=== PATIENT | male | born 1995 | race Caucasian/White ===

== ENCOUNTER 2020-08-31 15:10 | Emergency (ER) | payer MEDICAID ==
[2020-08-31] MEDS ORDERED: Lidocaine 5% 700 MG Patch TOP ONE (15:34)
[2020-08-31] MEDS ORDERED: Ketorolac 60 MG/2 ML SDV IM ONE (15:34)
[2020-08-31] MEDS ORDERED: Cyclobenzaprine 10 MG Tab PO ONE (15:34)
--- NOTE | 2020-08-31 15:40 | EDM.PDOC ---
ED HPI GENERAL MEDICAL PROBLEM - General Chief Complaint: Back Pain or Injury Stated Complaint: back pain Time Seen by Provider: 08/31/20 15:16 Source of Information: Reports: Patient History Limitations: Reports: No Limitations - History of Present Illness INITIAL COMMENTS - FREE TEXT/NARRATIVE: Patient is a 25-year-old male who presents today for low back pain. He states that he was laying in the bed with a memory foam for about hourly woke up he had this intense pain in his lower back. Patient has history of recurrent back problems and has had 2 spinal surgeries. He denies any injuries or direct trauma to the back any urinary incontinence or lower extremity weakness or numbness in the tailbone area. Patient has no other complaints and states that palpation or movement placements the pain worse that makes the pain better and she is to Tylenol without relief. Left Lower Back Pain Score (Numeric/FACES): 10 - Related Data Allergies Allergy/AdvReac Type Severity Reaction Status Date / Time No Known Allergies Allergy Verified 08/31/20 15:19 Home Meds: Home Meds Desvenlafaxine Succinate [Pristiq] 25 mg PO DAILY 08/31/20 [History] Past Medical History - Past Health History Medical/Surgical History: Denies Medical/Surgical History Musculoskeletal History: Reports: Back Pain, Chronic Psychiatric History: Reports: Anxiety, Depression - Infectious Disease History Infectious Disease History: Reports: Chicken Pox - Past Surgical History Other Musculoskeletal Surgeries/Procedures:: back surgery Social & Family History - Tobacco Use Tobacco Use Status *Q: Current Every Day Tobacco User Years of Tobacco use: 12 Packs/Tins Daily: 1 - Caffeine Use Caffeine Use: Reports: Energy Drinks - Recreational Drug Use Recreational Drug Use: No ED ROS GENERAL - Review of Systems Review Of Systems: See Below Constitutional: Reports: No Symptoms HEENT: Reports: No Symptoms Respiratory: Reports: No Symptoms Cardiovascular: Reports: No Symptoms Endocrine: Reports: No Symptoms GI/Abdominal: Reports: No Symptoms : Reports: No Symptoms Musculoskeletal: Reports: Back Pain Skin: Reports: No Symptoms Neurological: Reports: No Symptoms Psychiatric: Reports: No Symptoms Hematologic/Lymphatic: Reports: No Symptoms Immunologic: Reports: No Symptoms ED EXAM,LOWER BACK PAIN/INJURY - Physical Exam Exam: See Below Exam Limited By: No Limitations General Appearance: Alert, WD/WN, No Apparent Distress Respiratory/Chest: No Respiratory Distress, Lungs Clear Cardiovascular: Normal Peripheral Pulses, Regular Rate, Rhythm GI/Abdominal: Normal Bowel Sounds, Soft, Non-Tender Back Exam: Normal Inspection, Paraspinal Tenderness, Vertebral Tenderness Extremities: Normal Inspection Neurological: Alert, Normal Mood/Affect Course - Vital Signs Last Recorded V/S: Last Vital Signs Temp 97 F 08/31/20 15:20 Pulse 93 08/31/20 16:36 Resp 16 08/31/20 16:36 BP 136/94 H 08/31/20 16:36 Pulse Ox 98 08/31/20 16:36 - Orders/Labs/Meds Meds: Medications Discontinued Medications Generic Name Dose Route Start Last Admin Trade Name Freq PRN Reason Stop Dose Admin Cyclobenzaprine HCl 10 mg 08/31/20 15:34 08/31/20 15:51 Cyclobenzaprine 10 Mg Tab PO 08/31/20 15:35 10 mg ONETIME ONE Administration Ketorolac Tromethamine 60 mg 08/31/20 15:34 08/31/20 15:52 Ketorolac 60 Mg/2 Ml Sdv IM 08/31/20 15:35 60 mg ONETIME ONE Administration Lidocaine 700 mg 08/31/20 15:34 08/31/20 15:56 Lidocaine 5% 700 Mg Patch TOP 08/31/20 15:35 700 mg ONETIME ONE Administration Oxycodone/Acetaminophen 1 tab 08/31/20 16:28 08/31/20 16:34 Acetaminophen/Oxycodone 325-5 Mg Tab PO 08/31/20 16:29 1 tab ONETIME ONE Administration Departure - Departure Time of Disposition: 17:04 Disposition: Home, Self-Care 01 Condition: Good Clinical Impression: Lumbago - Discharge Information *PRESCRIPTION DRUG MONITORING PROGRAM REVIEWED*: Not Applicable *COPY OF PRESCRIPTION DRUG MONITORING REPORT IN PATIENT ANDREA: Not Applicable Instructions: Acute Back Pain, Adult Referrals: Austyn Eduardo MD [Primary Care Provider] - Forms: ED Department Discharge Additional Instructions: The following information is given to patients seen in the emergency department who are being discharged to home. This information is to outline your options for follow-up care. We provide all patients seen in our emergency department with a follow-up referral. The need for follow-up, as well as the timing and circumstances, are variable depending upon the specifics of your emergency department visit. If you don't have a primary care physician on staff, we will provide you with a referral. We always advise you to contact your personal physician following an emergency department visit to inform them of the circumstance of the visit and for follow-up with them and/or the need for any referrals to a consulting specialist. The emergency department will also refer you to a specialist when appropriate. This referral assures that you have the opportunity for follow-up care with a specialist. All of these measure are taken in an effort to provide you with optimal care, which includes your follow-up. Under all circumstances we always encourage you to contact your private physician who remains a resource for coordinating your care. When calling for follow-up care, please make the office aware that this follow-up is from your recent emergency room visit. If for any reason you are refused follow-up, please contact the [facility] Emergency Department at and asked to speak to the emergency department charge nurse. Please follow up with your primary care physician. If you do not have a primary care physician, see below: [facility] [address] [place] [id number] [facility] [address] [place] [id number] You were seen today for low back pain. He did not suffer any direct blows or trauma to the back. We gave you multiple medications that did not relieve the pain such as Toradol which is an NSAID lidocaine and muscle relaxers. We also gave you a narcotic of Percocet. We continue on with a few more pain meds. Recommended you continue to stay mobile and not resting that your back further locked up. If you have any signs of difficulty urinating leg weakness or numbness in tailbone area please return to the ED immediately otherwise follow- up to primary care physician. Sepsis Event Note (ED) - Evaluation Sepsis Screening Result: No Definite Risk - Focused Exam Vital Signs: Vital Signs Temp Pulse Resp BP Pulse Ox 08/31/20 16:36 93 16 136/94 H 98 08/31/20 16:04 91 14 150/93 H 96 08/31/20 15:20 97 F 99 18 159/96 H 96 - Assessment/Plan Plan: Patient is a 25-year-old male presents today for back pain that started planning a memory foam bed. Patient has some paraspinal and spinal tenderness on exam has no direct trauma or injury to the spine. Patient history of 2 spinal surgeries. Will attempt to provide pain control with Toradol and Flexeril and reassess.
[2020-08-31] MEDS ORDERED: Acetaminophen/oxyCODONE 325-5 MG Tab PO ONE (16:28)
== END 2020-08-31 17:51 | disposition home or self-care (01) ==
LOC: MW.ED 15:10
DX: M54.5 Low back pain (principal); Z72.0 Tobacco use
CPT/HCPCS: 96372; 99283; A9270; J1885

== ENCOUNTER 2021-08-03 14:33 | Emergency (ER) | payer MEDICAID, OTHER | END 2021-08-03 16:54 | disposition home or self-care (01) | LOC: MW.ED 14:33 | DX: K64.4 Residual hemorrhoidal skin tags (principal); Z79.899 Other long term (current) drug therapy | CPT/HCPCS: 99282 ==

== ENCOUNTER 2022-02-12 12:04 | Day surgery (SDC) | payer BC, OTHER ==
[2022-02-12] MEDS ORDERED: cefOXitin 2 GM in Premix Bag 1 BAG IV ONE (12:08)
[2022-02-12] MEDS ORDERED: Lactated Ringers 1,000 ML IV SCH ×2 (12:15→14:00)
[2022-02-12] MEDS ORDERED: fentaNYL 100 MCG/2 ML SDV ONE ×2 (12:23→13:43)
[2022-02-12] MEDS ORDERED: Metoclopramide 10 MG/2 ML SDV IVPUSH PRN (12:29)
[2022-02-12] MEDS ORDERED: fentaNYL 50 MCG/ML SDV IVPUSH PRN (12:29)
[2022-02-12] MEDS ORDERED: Naloxone 0.4 MG/ML SDV IVPUSH PRN (12:29)
[2022-02-12] MEDS ORDERED: Ondansetron 4 MG/2 ML SDV IVPUSH PRN ×2 (12:29→13:57)
[2022-02-12] MEDS ORDERED: Albuterol 0.083% 2.5 MG/3 ML Neb Soln NEB PRN (12:29)
[2022-02-12] MEDS ORDERED: HYDROmorphone 1 MG/ML Syringe IVPUSH PRN (12:29)
[2022-02-12] MEDS ORDERED: Morphine 2 MG/ML SYRINGE IVPUSH PRN (12:29)
[2022-02-12] MEDS ORDERED: Propofol 200 MG/20 ML SDV ONE (12:39)
[2022-02-12] MEDS ORDERED: fentaNYL 250 MCG/5 ML SDV ONE (12:39)
[2022-02-12] MEDS ORDERED: Lidocaine 2% 5 ML SDV ONE (12:47)
[2022-02-12] MEDS ORDERED: Succinylcholine/Sod PF 100 MG/5 ML SYRINGE IV ONE ×2 (12:47→12:48)
[2022-02-12] MEDS ORDERED: Dexmedetomidine 200 MCG/2 ML SDV ONE (12:47)
[2022-02-12] MEDS ORDERED: Rocuronium Bromide 50 MG/5 ML Syringe ONE (12:47)
[2022-02-12] MEDS ORDERED: Bupivacaine 0.5% 30 ML SDV ONE (12:50)
[2022-02-12] MEDS ORDERED: cefOXitin 1 GM Vial ONE (13:28)
[2022-02-12] MEDS ORDERED: Dexamethasone 4 MG/ML 5 ML MDV ONE (13:28)
[2022-02-12] MEDS ORDERED: Ketorolac 30 MG/ML SDV ONE (13:41)
[2022-02-12] MEDS ORDERED: Ondansetron 4 MG/2 ML SDV ONE (13:41)
[2022-02-12] MEDS ORDERED: Acetaminophen/HYDROcodone 325-5 MG Tab PO PRN (13:57)
[2022-02-12] MEDS ORDERED: Morphine 4 MG/ML Syringe IVPUSH PRN (13:57)
== END 2022-02-12 15:58 | disposition home or self-care (01) ==
LOC: MW.SDS 12:04
PROVIDERS: ATTEND Surgery
DX: K61.0 Anal abscess (principal); G47.30 Sleep apnea, unspecified; K21.9 Gastro-esophageal reflux disease without esophagitis; F43.10 Post-traumatic stress disorder, unspecified; F41.9 Anxiety disorder, unspecified; F32.A Depression, unspecified; E66.9 Obesity, unspecified; Z68.43 Body mass index [BMI] 50.0-59.9, adult; F17.210 Nicotine dependence, cigarettes, uncomplicated; Z79.899 Other long term (current) drug therapy
CPT/HCPCS: 46050; 87070; 87075; 87077; 87186; 87205; J0131; J0330; J0694; J1100; J1170; J1885; J2704; J3010; J3490; J7120; J2405

== ENCOUNTER 2022-05-02 11:21 | Emergency (ER) | payer SELFPAY ==
[2022-05-02] MEDS ORDERED: Octyl 2-Cyanoacrylate 1 g/1 mL 1 APPLIC PEN TOP STA (12:16)
== END 2022-05-02 12:51 | disposition home or self-care (01) ==
LOC: MW.ED 11:21
DX: I83.892 Varicose veins of left lower extremity with other complications (principal); K21.9 Gastro-esophageal reflux disease without esophagitis; E66.9 Obesity, unspecified; Z68.43 Body mass index [BMI] 50.0-59.9, adult; Z88.5 Allergy status to narcotic agent; Z79.899 Other long term (current) drug therapy
CPT/HCPCS: 99283; A9270

== ENCOUNTER 2022-05-26 21:18 | Emergency (ER) | payer BC ==
[2022-05-26] MEDS ORDERED: Ondansetron 4 MG/2 ML SDV IVPUSH ONE (21:24)
[2022-05-26] MEDS ORDERED: Lactated Ringers 1,000 ML IV SCH (21:30)
[2022-05-26] MEDS ORDERED: Morphine 4 MG/ML Syringe IVPUSH ONE (21:31)
[2022-05-26] MEDS ORDERED: HYDROmorphone 1 MG/ML Syringe IVPUSH ONE ×2 (21:50→22:56)
[2022-05-26 22:16] LABS: CARBON DIOXIDE,CO2 22.3 mmol/L (21.0-32.0); POTASSIUM,K 4.1 mmol/L (3.5-5.1)
[2022-05-26] MEDS ORDERED: Iopamidol 755 MG/ML 500 ML Multipack Bottle IVPUSH STA (22:28)
[2022-05-26] MEDS ORDERED: Simethicone 80 MG Tab.Chew PO ONE (23:07)
[2022-05-26] MEDS ORDERED: Alum Hydro/Mag Hydro/Simeth XS 15 ML, Lidocaine 2% 5 ML PO ONE ×2 (23:56)
[2022-05-26] MEDS ORDERED: Acetaminophen 325 MG Tab PO ONE (23:56)
[2022-05-27] MEDS ORDERED: Haloperidol Lactate 5 MG/ML SDV IM ONE (01:07)
[2022-05-27] MEDS ORDERED: LORazepam 2 MG/ML SDV IVPUSH ONE (01:08)
[2022-05-27] MEDS ORDERED: Lactated Ringers 1,000 ML IV SCH (01:15)
== END 2022-05-27 02:20 | disposition home or self-care (01) ==
LOC: MW.ED 21:18
DX: R10.33 Periumbilical pain (principal); R11.10 Vomiting, unspecified; K21.9 Gastro-esophageal reflux disease without esophagitis; E66.9 Obesity, unspecified; Z68.42 Body mass index [BMI] 45.0-49.9, adult; Z88.5 Allergy status to narcotic agent; Z79.899 Other long term (current) drug therapy
CPT/HCPCS: 36415; 71045; 74177; 76705; 80053; 81003; 83690; 85025; 93005; 96361; 96374; 96375; 96376; 99284; A9270; J1170; J2060; J2270; J2405; J7120; Q9967

== ENCOUNTER 2022-06-08 19:17 | Emergency (ER) | payer BC ==
[2022-06-08 19:56] LABS: CARBON DIOXIDE,CO2 25.7 mmol/L (21.0-32.0); POTASSIUM,K 4.3 mmol/L (3.5-5.1)
== END 2022-06-08 21:10 | disposition home or self-care (01) ==
LOC: MW.ED 19:17
DX: I83.892 Varicose veins of left lower extremity with other complications (principal); K21.9 Gastro-esophageal reflux disease without esophagitis; E66.9 Obesity, unspecified; Z88.5 Allergy status to narcotic agent; Z88.8 Allergy status to other drugs, medicaments and biological substances; Z79.899 Other long term (current) drug therapy; Z68.42 Body mass index [BMI] 45.0-49.9, adult
CPT/HCPCS: 12001; 36415; 80053; 85025; 99283

== ENCOUNTER 2022-10-16 18:08 | Emergency (ER) | payer SELFPAY ==
[2022-10-16] MEDS ORDERED: Sodium Chloride 0.9% 2.5 ML Syringe FLUSH PRN (18:18)
[2022-10-16] MEDS ORDERED: Sodium Chloride 0.9% 10 ML Syringe FLUSH PRN (18:18)
[2022-10-16] MEDS ORDERED: methylPREDNISolone Sodium Succinate 125 MG/2 ML SDV IVPUSH STA (18:25)
[2022-10-16] MEDS ORDERED: diphenhydrAMINE 50 MG/ML SDV IVPUSH STA (18:25)
[2022-10-16] MEDS ORDERED: Sodium Chloride 0.9% 1,000 ML IV STA (18:25)
[2022-10-16] MEDS ORDERED: Famotidine 20 MG/2 ML SDV IVPUSH STA (18:26)
[2022-10-16 18:29] LABS: BASOPHILS PERCENT AUTO 0.4 % (0.0-1.5); EOSINOPHILS ABSOLUTE AUTO 0.2 K/uL (0.0-0.7); EOSINOPHILS PERCENT AUTO 2.2 % (0.0-7.0); HEMATOCRIT 45.8 % (38.0-50.0); HEMOGLOBIN 15.8 g/dL (13.0-17.0); LYMPHOCYTES ABSOLUTE AUTO 3.1 K/uL (0.6-2.4); LYMPHOCYTES PERCENT AUTO 38.6 % (16.0-40.0); MEAN CORPUSCULAR HEMOGLOBIN 30.1 pg (27.0-32.0); MEAN CORPUSCULAR HGB CONC 34.5 g/dL (31.0-37.0); MEAN CORPUSCULAR VOLUME 87.2 fL (80.0-98.0); MONOCYTES ABSOLUTE AUTO 0.5 K/uL (0.0-0.8); MONOCYTES PERCENT AUTO 6.7 % (0.0-15.0); NEUTROPHILS ABSOLUTE AUTO 4.2 K/uL (1.4-5.7); NEUTROPHILS PERCENT AUTO 52.1 % (48.0-80.0); NRBC ABSOLUTE 0 K/uL; PLATELET COUNT,PLT 234 K/uL (150-400); RED BLOOD CELL COUNT 5.25 M/uL (4.50-5.90); WHITE BLOOD CELL COUNT,WBC 8.01 K/uL (4.0-11.0)
[2022-10-16 18:49] LABS: ALBUMIN 3.7 g/dL (3.4-5.0); CALCIUM 8.7 mg/dL (8.5-10.1); CARBON DIOXIDE,CO2 26.6 mmol/L (21.0-32.0); CREATININE 1.1 mg/dL (0.8-1.3); EST CRCL DRUG DOSING (CG) 121.65 mL/min; POTASSIUM,K 3.9 mmol/L (3.5-5.1); PROTEIN TOTAL,TP 7.5 g/dL (6.4-8.2)
== END 2022-10-16 20:25 | disposition home or self-care (01) ==
LOC: MW.ED 18:08
DX: T63.441A Toxic effect of venom of bees, accidental (unintentional), initial encounter (principal); K21.9 Gastro-esophageal reflux disease without esophagitis; E66.9 Obesity, unspecified; Z68.38 Body mass index [BMI] 38.0-38.9, adult; Z88.8 Allergy status to other drugs, medicaments and biological substances; Z88.5 Allergy status to narcotic agent; Z79.899 Other long term (current) drug therapy
CPT/HCPCS: 36415; 80053; 85025; 96361; 96374; 96375; 99284; J1200; J2930; J3490; J7030

== ENCOUNTER 2023-01-02 19:23 | Emergency (ER) | payer BC, OTHER ==
[2023-01-02] MEDS ORDERED: Acetaminophen 325 MG Tab PO ONE (20:35)
[2023-01-02] MEDS ORDERED: Orphenadrine 60 MG/2 ML Inj IM ONE (20:35)
[2023-01-02] MEDS ORDERED: Lidocaine 4% 1 each Patch TOP SCH (21:30)
== END 2023-01-02 21:59 | disposition home or self-care (01) ==
LOC: MW.ED 19:23
DX: S39.012A Strain of muscle, fascia and tendon of lower back, initial encounter (principal); M54.16 Radiculopathy, lumbar region; K21.9 Gastro-esophageal reflux disease without esophagitis; Z88.5 Allergy status to narcotic agent; Z88.8 Allergy status to other drugs, medicaments and biological substances; Z79.899 Other long term (current) drug therapy; W00.0XXA Fall on same level due to ice and snow, initial encounter; Y92.89 Other specified places as the place of occurrence of the external cause; Y99.0 Civilian activity done for income or pay
CPT/HCPCS: 72131; 96372; 99284; A9270; J2360; 99283

== ENCOUNTER 2023-02-27 17:41 | Emergency (ER) | payer BC, OTHER ==
[2023-02-27 19:00] LABS: CORONAVIRUS COVID-19 NAA NEGATIVE (NEGATIVE); INFLUENZA A NAA NEGATIVE (NEGATIVE); INFLUENZA B NAA NEGATIVE (NEGATIVE)
[2023-02-27 19:34] LABS: HEMATOCRIT 50.7 % (42.0-52.0); HEMOGLOBIN 17.8 g/dL (14.0-18.0); MEAN CORPUSCULAR HEMOGLOBIN 31.2 pg (28.0-32.0); MEAN CORPUSCULAR HGB CONC 35.1 g/dL (32.0-36.0); MEAN CORPUSCULAR VOLUME 88.8 fL (83.0-99.0); MEAN PLATELET VOLUME 9.9 fL (9.4-12.4); PLATELET COUNT,PLT 266 K/uL (150-400); RED BLOOD CELL COUNT 5.71 M/uL (4.52-5.90); WHITE BLOOD CELL COUNT,WBC 10.53 K/uL (3.9-11.3)
[2023-02-27] MEDS ORDERED: OLANZapine 20 MG in Water For Injection, Sterile 2.1 ML IM ONE (19:34)
[2023-02-27 20:03] LABS: MAGNESIUM 2.1 mg/dL (1.8-2.4); SALICYLATE 0.5 mg/dL (0.0-20.0)
[2023-02-27 20:20] LABS: A/G RATIO 1.1 (0.9-1.6); ACETAMINOPHEN <2.0 ug/mL; ALANINE AMINOTRANSFERASE,ALT 48 IU/L (14-63); ALBUMIN 4.4 g/dL (3.4-5.0); ALKALINE PHOSPHATASE 56 U/L (46-116); ASPARTATE AMNIOTRANSFERASE,AST 37 IU/L (15-37); BLOOD UREA NITROGEN,BUN 8 mg/dL (7.0-18.0); CALCIUM 9.3 mg/dL (8.5-10.1); CARBON DIOXIDE,CO2 29.3 mmol/L (21.0-32.0); CHLORIDE,CL 105 mmol/L (98-107); CREATININE 1.1 mg/dL (0.8-1.3); EST CRCL DRUG DOSING (CG) 121.65 mL/min; GLUCOSE RANDOM 95 mg/dL (74-106); POTASSIUM,K 3.7 mmol/L (3.5-5.1); PROTEIN TOTAL,TP 8.3 g/dL (6.4-8.2); SODIUM,NA 146 mmol/L (136-148); TSH ULTRASENSITIVE 0.91 uIU/mL (0.36-3.74)
[2023-02-27 20:23] LABS: ESTIMATED GFR 93 mL/min (>60)
[2023-02-27 20:33] LABS: SEG NEUTROPHILS ABSOLUTE MAN 6.42 K/uL (1.80-7.70); SEG NEUTROPHILS PERCENT MAN 61 % (41-71)
[2023-02-27 20:34] LABS: LYMPHOCYTES ABSOLUTE MAN 3.58 K/uL (1.00-4.80); LYMPHOCYTES PERCENT MAN 34 % (24-44); MONOCYTES ABSOLUTE MAN 0.53 K/uL (0.00-0.80); MONOCYTES PERCENT MAN 5 % (0-8)
[2023-02-28 02:30] LABS: APPEARANCE,URINE CLEAR; BILIRUBIN,URINE NEGATIVE (NEGATIVE); COLOR,URINE YELLOW; GLUCOSE,URINE NEGATIVE (NEGATIVE); KETONES,URINE TRACE mg/dL (NEGATIVE); LEUKOCYTE ESTERASE,URINE NEGATIVE (NEGATIVE); NITRITE,URINE NEGATIVE (NEGATIVE); OCCULT BLOOD,URINE NEGATIVE (NEGATIVE); PROTEIN,URINE NEGATIVE (NEGATIVE); UROBILINOGEN,URINE 0.2 EU/dL (<2.0)
[2023-02-28 02:40] LABS: AMPHETAMINES SCREEN, URINE NEGATIVE (CUTOFF=500); BARBITURATE SCREEN,URINE NEGATIVE (CUTOFF=200); BENZODIAZEPINES SCREEN,URINE NEGATIVE (CUTOFF=150); BUPRENORPHINE SCREEN,URINE NEGATIVE (CUTOFF=10); METHADONE SCREEN, URINE NEGATIVE (CUTOFF=200); METHAMPHETAMINES SCREEN, URINE NEGATIVE (CUTOFF=500); OXYCODONE SCREEN,URINE NEGATIVE (CUT0FF=100); PCP SCREEN,URINE NEGATIVE (CUTOFF=25); THC SCREEN,URINE 20 NG/ML NEGATIVE (CUTOFF=50)
== END 2023-02-28 10:21 ==
LOC: MW.ED 17:41
DX: R45.851 Suicidal ideations (principal); Z20.822 Contact with and (suspected) exposure to COVID-19; Z88.6 Allergy status to analgesic agent; Z88.5 Allergy status to narcotic agent
CPT/HCPCS: 0240U; 36415; 80053; 80143; 80179; 80305; 80307; 81003; 83735; 84443; 85007; 85027; 96372; 99285; J2405; J3490

== ENCOUNTER 2023-09-30 11:28 | Emergency (ER) | payer SELFPAY | END 2023-09-30 12:40 | disposition home or self-care (01) | LOC: MW.ED 11:28 | DX: M54.42 Lumbago with sciatica, left side (principal); F17.210 Nicotine dependence, cigarettes, uncomplicated; Z88.5 Allergy status to narcotic agent; Z88.6 Allergy status to analgesic agent; Z79.899 Other long term (current) drug therapy | CPT/HCPCS: 99283 ==

== ENCOUNTER 2023-10-18 14:05 | Emergency (ER) | payer MEDICAID ==
[2023-10-18] MEDS: HYDROmorphone 1 MG/ML Syringe IM ONE (14:27)
== END 2023-10-18 14:59 | disposition home or self-care (01) ==
LOC: MW.ED 14:05
DX: M54.42 Lumbago with sciatica, left side (principal); F17.210 Nicotine dependence, cigarettes, uncomplicated; Z79.899 Other long term (current) drug therapy; Z88.6 Allergy status to analgesic agent; Z88.5 Allergy status to narcotic agent; Z75.8 Other problems related to medical facilities and other health care
CPT/HCPCS: 96372; 99283; J1170

== ENCOUNTER 2024-04-13 14:50 | Emergency (ER) | payer BC ==
[2024-04-13] MEDS: Lidocaine 4% Patch TOP ONE (15:23)
[2024-04-13] MEDS: Orphenadrine 60 MG/2 ML Inj IM ONE (15:23)
== END 2024-04-13 16:40 | disposition home or self-care (01) ==
LOC: MW.ED 14:50
DX: M54.41 Lumbago with sciatica, right side (principal); Z79.899 Other long term (current) drug therapy; Z88.6 Allergy status to analgesic agent; Z88.5 Allergy status to narcotic agent
CPT/HCPCS: 96372; 99283; A9270; J2360

== ENCOUNTER 2024-04-15 22:45 | Emergency (ER) | payer BC ==
[2024-04-15] MEDS: LORazepam 2 MG/ML SDV IM ONE (23:13)
[2024-04-15] MEDS: droPERidol 2.5 MG/ML SDV IM ONE (23:13)
[2024-04-15] MEDS: diphenhydrAMINE 50 MG/ML SDV IM STA (23:14)
[2024-04-15 23:55] LABS: BASOPHILS ABSOLUTE AUTO 0.02 K/uL (0.00-0.20); BASOPHILS PERCENT AUTO 0.3 % (0.0-1.0); EOSINOPHILS ABSOLUTE AUTO 0.05 K/uL (0.00-0.45); EOSINOPHILS PERCENT AUTO 0.8 % (0.0-6.0); HEMATOCRIT 49.8 % (42.0-52.0); HEMOGLOBIN 16.9 g/dL (14.0-18.0); IMMATURE GRAN ABSOLUTE AUTO 0.02 K/uL (0.00-0.05); IMMATURE GRAN PERCENT AUTO 0.3 % (0.0-0.4); LYMPHOCYTES ABSOLUTE AUTO 2.92 K/uL (1.00-4.80); LYMPHOCYTES PERCENT AUTO 47.9 % (24.0-44.0); MEAN CORPUSCULAR HEMOGLOBIN 30.2 pg (28.0-32.0); MEAN CORPUSCULAR HGB CONC 33.9 g/dL (32.0-36.0); MEAN CORPUSCULAR VOLUME 89.1 fL (83.0-99.0); MEAN PLATELET VOLUME 8.8 fL (9.4-12.4); MONOCYTES ABSOLUTE AUTO 0.47 K/uL (0.00-0.80); MONOCYTES PERCENT AUTO 7.7 % (0.0-8.0); NEUTROPHILS ABSOLUTE AUTO 2.61 K/uL (1.80-7.70); PLATELET COUNT,PLT 259 K/uL (150-400); RED BLOOD CELL COUNT 5.59 M/uL (4.52-5.90); WHITE BLOOD CELL COUNT,WBC 6.09 K/uL (3.9-11.3)
[2024-04-16 00:18] LABS: ACETAMINOPHEN <2.0 ug/mL; ALANINE AMINOTRANSFERASE,ALT 36 IU/L (14-63); ALBUMIN 3.9 g/dL (3.4-5.0); ALKALINE PHOSPHATASE 57 U/L (46-116); ASPARTATE AMNIOTRANSFERASE,AST 34 IU/L (15-37); BILIRUBIN TOTAL 0.9 mg/dL (0.2-1.0); BLOOD UREA NITROGEN,BUN 8 mg/dL (7.0-18.0); CALCIUM 8.6 mg/dL (8.5-10.1); CARBON DIOXIDE,CO2 27.6 mmol/L (21.0-32.0); CHLORIDE,CL 102 mmol/L (98-107); CREATININE 0.9 mg/dL (0.8-1.3); ETHANOL BLOOD MEDICAL 260 mg/dL; GLUCOSE RANDOM 91 mg/dL (74-106); POTASSIUM,K 3.2 mmol/L (3.5-5.1); PROTEIN TOTAL,TP 7.9 g/dL (6.4-8.2); SALICYLATE 0.2 mg/dL (0.0-20.0); SODIUM,NA 143 mmol/L (136-148)
[2024-04-16 00:20] LABS: ESTIMATED GFR 118 mL/min (>60)
[2024-04-16] MEDS: diphenhydrAMINE 50 MG/ML SDV ONE (06:52)
[2024-04-16] MEDS: LORazepam 2 MG/ML SDV ONE (06:52)
[2024-04-16] MEDS: droPERidol 2.5 MG/ML SDV ONE (06:52)
== END 2024-04-16 09:38 | disposition home or self-care (01) ==
LOC: MW.ED 22:45
DX: F10.129 Alcohol abuse with intoxication, unspecified (principal); R45.851 Suicidal ideations; Z98.84 Bariatric surgery status; Z88.5 Allergy status to narcotic agent; Z88.8 Allergy status to other drugs, medicaments and biological substances; Y90.8 Blood alcohol level of 240 mg/100 ml or more
CPT/HCPCS: 36415; 73562; 80053; 80143; 80179; 80307; 85025; 96372; 99285; J1200; J2060

== ENCOUNTER 2024-07-22 19:11 | Emergency (ER) | payer BC, MEDICAID ==
[2024-07-22] MEDS ORDERED: Sodium Chloride 0.9% 2.5 ML Syringe FLUSH PRN (20:21)
[2024-07-22] MEDS ORDERED: Sodium Chloride 0.9% 10 ML Syringe FLUSH PRN (20:21)
[2024-07-22] MEDS ORDERED: Sodium Chloride 0.9% 20 ML SDV IV PRN (20:21)
[2024-07-22] MEDS: Sodium Chloride 0.9% 1,000 ML IV SCH (21:02)
[2024-07-22] MEDS: Meclizine 25 MG Tab PO ONE (21:03)
[2024-07-22 21:09] LABS: BASOPHILS ABSOLUTE AUTO 0.03 K/uL (0.00-0.20); BASOPHILS PERCENT AUTO 0.4 % (0.0-1.0); EOSINOPHILS PERCENT AUTO 1.3 % (0.0-6.0); HEMATOCRIT 44.9 % (42.0-52.0); HEMOGLOBIN 15.2 g/dL (14.0-18.0); IMMATURE GRAN ABSOLUTE AUTO 0.01 K/uL (0.00-0.05); IMMATURE GRAN PERCENT AUTO 0.1 % (0.0-0.4); LYMPHOCYTES ABSOLUTE AUTO 2.45 K/uL (1.00-4.80); LYMPHOCYTES PERCENT AUTO 32.5 % (24.0-44.0); MEAN CORPUSCULAR HEMOGLOBIN 30.8 pg (28.0-32.0); MEAN CORPUSCULAR HGB CONC 33.9 g/dL (32.0-36.0); MEAN CORPUSCULAR VOLUME 90.9 fL (83.0-99.0); MEAN PLATELET VOLUME 9.7 fL (9.4-12.4); MONOCYTES ABSOLUTE AUTO 0.34 K/uL (0.00-0.80); MONOCYTES PERCENT AUTO 4.5 % (0.0-8.0); NEUTROPHILS ABSOLUTE AUTO 4.61 K/uL (1.80-7.70); NEUTROPHILS PERCENT AUTO 61.2 % (41.0-71.0); PLATELET COUNT,PLT 182 K/uL (150-400); RED BLOOD CELL COUNT 4.94 M/uL (4.52-5.90); WHITE BLOOD CELL COUNT,WBC 7.54 K/uL (3.9-11.3)
[2024-07-22 21:40] LABS: A/G RATIO 1.1 (0.9-1.6); ALBUMIN 3.3 g/dL (3.4-5.0); BILIRUBIN TOTAL 1.5 mg/dL (0.2-1.0); CALCIUM 8.4 mg/dL (8.5-10.1); CARBON DIOXIDE,CO2 28.5 mmol/L (21.0-32.0); EST CRCL DRUG DOSING (CG) 131.41 mL/min; POTASSIUM,K 3.6 mmol/L (3.5-5.1); PROTEIN TOTAL,TP 6.3 g/dL (6.4-8.2)
== END 2024-07-22 23:14 | disposition home or self-care (01) ==
LOC: MW.ED 19:11
DX: R42 Dizziness and giddiness (principal); E80.6 Other disorders of bilirubin metabolism; F17.200 Nicotine dependence, unspecified, uncomplicated; Z88.8 Allergy status to other drugs, medicaments and biological substances; Z79.899 Other long term (current) drug therapy; Z75.3 Unavailability and inaccessibility of health-care facilities
CPT/HCPCS: 36415; 80053; 83690; 84484; 85025; 93005; 96360; 99285; A9270; J7030; 93010; 99283

== ENCOUNTER 2025-01-11 15:19 | Emergency (ER) | payer OTHER, MEDICAID | END 2025-01-11 17:20 | disposition home or self-care (01) | LOC: MW.ED 15:19 | DX: S33.5XXA Sprain of ligaments of lumbar spine, initial encounter (principal); Z79.899 Other long term (current) drug therapy; Z88.8 Allergy status to other drugs, medicaments and biological substances; V79.9XXA Bus occupant (driver) (passenger) injured in unspecified traffic accident, initial encounter | CPT/HCPCS: 72100; 72100-26; 73502-26-RT; 73502-RT; 99284 ==